=== PATIENT | female | born 1955 | race Caucasian/White ===

== ENCOUNTER 2020-04-28 09:38 | Outpatient (CLI) | payer BC, SELFPAY ==
--- NOTE | ~2020-04-28 | DEXA_ITS ---
BMD(1) Young-Adult(2) Age-Matched(3) Region (g/cm2) T-score Z-score WHO Classification L1 0.789 -2.9 -0.9 Osteoporosis L2 0.795 -3.4 -1.5 Osteoporosis L3 1.031 -1.5 0.5 Osteopenia L4 1.143 -0.6 1.4 Normal L1-L4 0.944 -2.0 -0.1 Osteopenia L2-L4 0.989 -1.8 0.1 Osteopenia Trend: L2-L4 Change vs Change vs Measured Age BMD(1) Baseline Previous Date (years) (g/cm2) (%) (%) 04/28/2020 [age] 0.989 baseline - 1 - Statistically 68% of repeat scans fall within 1SD (+- 0.010 g/cm2 for AP Spine L2-L4) 2 - [place] (Combined NHANES (ages 20-30) / ScanCafe (ages 20-40)) AP Spine Reference Population (v112) 3 - Matched for Age, Weight (females 25-100 kg), Ethnic 11 - World Health Organization - Definition of Osteoporosis and Osteopenia for Women: Normal = T-score at or above -1.0 SD; Osteopenia = T-score between -1.0 and -2.5 SD; Osteoporosis = T-score at or below -2.5 SD; (WHO definitions only apply when a young healthy Women reference database is used to determine T-scores.) Printed: 04/28/2020 10:25:53 AM (13.60)76:3.00:50.00:12.0 0.00:10.08 0.60x1.05 19.6:%Fat=25.8% 0.00:0.00 0.00:0.00 Filename: [email or web address].[email or web address] Scan Mode: Standard;[employer] 37.0 Etohum [id number] BMD(1) Young-Adult(2,7) Age-Matched(3) Region (g/cm2) T-score Z-score WHO Classification Neck Left 0.576 -3.3 -1.6 Osteoporosis Right 0.629 -2.9 -1.2 Osteoporosis Mean 0.602 -3.1 -1.4 Osteoporosis Difference 0.052 0.4 0.4 - Total Left 0.690 -2.5 -1.1 Osteoporosis Right 0.679 -2.6 -1.1 Osteoporosis Mean 0.685 -2.6 -1.1 Osteoporosis Difference 0.011 0.1 0.1 - Hip [place] Length Comparison (mm) (Right = 92.8 mm) (Mean = 100.5 mm) (Left = 97.9 mm) Trend: Total Mean Change vs Change vs Measured Age BMD(1) Baseline Previous Date (years) (g/cm2) (%) (%) 04/28/2020 65.2 0.685 baseline - 1 - Statistically 68% of repeat scans fall within 1SD (+- 0.010 g/cm2 for DualFemur Total) 2 - [place] (Combined NHANES (ages 20-30) / ScanCafe (ages 20-40)) Femur Reference Population (v112) 3 - Matched for Age, Weight (females 25-100 kg), Ethnic 7 - DualFemur Total T-score difference is 0.1. Asymmetry is None. 11 - World Health Organization - Definition of Osteoporosis and Osteopenia for Women: Normal = T-score at or above -1.0 SD; Osteopenia = T-score between -1.0 and -2.5 SD; Osteoporosis = T-score at or below -2.5 SD; (WHO definitions only apply when a young healthy Women reference database is used to determine T-scores.) Printed: 04/28/2020 10:25:53 AM (13.60); Filename: [email or web address].dfx; Right Femur; 15.3:%Fat=24.4%; Neck Angle (deg)= 53; Scan Mode: Standard 37.0 uGy; Left Femur; 14.9:%Fat=18.7%; Neck Angle (deg)= 59; Scan Mode: Standard 37.0 uGy [employer] [id number] Dear Ck Chang, Your patient Lorin Christianson completed a BMD test on 04/28/2020 using the [employer] DXA System (analysis version: 13.60) manufactured by [employer]. The following summarizes the results of our evaluation. PATIENT BIOGRAPHICAL: Name: Lorin Christianson Date: 1955 Height: 60.0 in. Gender: Female
== END 2020-04-28 09:39 | disposition home or self-care (01) ==
DX: M81.6 Localized osteoporosis [Lequesne] (principal)
CPT/HCPCS: 77080

== ENCOUNTER 2022-03-23 10:09 | Outpatient (CLI) | payer BC, SELFPAY ==
--- NOTE | ~2022-03-23 | XR_ITS ---
XR thoracic spine 3V DATE: 03/23/2022 11:28 INDICATION: Pain TECHNIQUE: AP, lateral, swimmer views COMPARISON: None FINDINGS: Degenerative disc disease at C5-6 and C6-7. Diffuse osteopenia. There is degenerative spurring of the thoracic spine. Mild scoliosis. No fracture or bone destruction is evident. The thoracic pedicles are intact. Surgical clips, right upper quadrant, consistent with cholecystectomy. IMPRESSION: Osteopenia Degenerative spurring Mild scoliosis Reviewed, dictated and finalized at location B.
== END 2022-03-23 10:10 | disposition home or self-care (01) ==
PROVIDERS: PCP Family Medicine
DX: M48.54XA Collapsed vertebra, not elsewhere classified, thoracic region, initial encounter for fracture (principal); M81.0 Age-related osteoporosis without current pathological fracture
CPT/HCPCS: 72072

== ENCOUNTER 2022-05-17 08:16 | Outpatient (CLI) | payer BC, SELFPAY ==
--- NOTE | ~2022-05-17 | DEXA_ITS ---
Bone Density Report Name: GRZEGORZ SEN Age: 67 Sex: Female Ethnicity: White Date of : 1955 Indication: postmenopausal; screening for osteoporosis; height loss; Referring Provider: UNKNOWN, UNKNOWN Study: Bone densitometry was performed. Exam Date: May 17, 2022 Accession number: [id number] Bone Density: Region BMD T-score Z-score Classification AP Spine(L1, L2, L3) 0.648 -3.4 -1.6 Osteoporosis Femoral Neck (Left) 0.481 -3.3 -1.8 Osteoporosis Total Hip (Left) 0.626 -2.6 -1.4 Osteoporosis Femoral Neck (Right) 0.448 -3.6 -2.1 Osteoporosis Total Hip (Right) 0.572 -3.0 -1.8 Osteoporosis Femoral Neck Mean 0.465 -3.5 -1.9 Osteoporosis Total Hip Mean 0.599 -2.8 -1.6 Osteoporosis World Health Organization criteria for BMD impression classify patients as: Normal (T-score at or above -1.0), Osteopenia (T-score between -1.0 and -2.5), or Osteoporosis (T-score at or below -2.5). 10-year Fracture Risk: FRAX not reported because: Some T-score for Spine Total or Hip Total or Femoral Neck at or below -2.5 Treated for osteoporosis Clinical Information Provided by Patient: Smokes Is being treated for osteoporosis Has used the following medications: Fosamax (i.e. alendronate), Vitamin D, Calcium Patient maximum height was 60 No regular weight bearing exercise Does not regularly consume dairy products Drinks caffeinated beverages Onset of menses at age 13 Number of children 2 Impression: The patient has osteoporosis, based on the Right Femoral Neck T-score. The patient has risk factors, including: smoking. Discussion: It is important to ask patients whether they are taking their medications and to encourage continued and appropriate compliance with their osteoporosis therapies to reduce fracture risk. It is also important to review their risk factors and encourage appropriate calcium and vitamin D intakes, exercise, fall prevention and other lifestyle measures. Follow-Up: Consider a repeat BMD and Vertebral Fracture Assessment (VFA) exam in 2 years or sooner if medically necessary, to reassess this patient's status. Reported by: Dr. Robert Mayers on 05/17/2022 8:58:00 AM. Reviewed, dictated and finalized at location ABritton ROJAS
== END 2022-05-17 08:17 | disposition home or self-care (01) ==
LOC: CHSIMG 08:20
PROVIDERS: PCP Family Medicine
DX: M81.0 Age-related osteoporosis without current pathological fracture (principal)
CPT/HCPCS: 77080

== ENCOUNTER 2024-08-21 13:09 | Outpatient (CLI) | payer MEDICARE, BC, SELFPAY ==
--- NOTE | ~2024-08-21 | DEXA_ITS ---
Bone Density Report Name: GRZEGORZ SEN Age: 69 Sex: Female Ethnicity: White Date of : 1955 Indication: postmenopausal osteoporosis; monitoring treatment; Referring Provider: LESTER, CARLY Moreno Study: Bone densitometry was performed. Exam Date: August 21, 2024 Accession number: [id number] Bone Density: Region BMD T-score Z-score Classification AP Spine(L1, L2, L3) 0.631 -3.5 -1.6 Osteoporosis Femoral Neck (Left) 0.422 -3.8 -2.2 Osteoporosis Total Hip (Left) 0.627 -2.6 -1.2 Osteoporosis Femoral Neck (Right) 0.429 -3.8 -2.1 Osteoporosis Total Hip (Right) 0.601 -2.8 -1.4 Osteoporosis Femoral Neck Mean 0.426 -3.8 -2.2 Osteoporosis Total Hip Mean 0.614 -2.7 -1.3 Osteoporosis World Health Organization criteria for BMD impression classify patients as: Normal (T-score at or above -1.0), Osteopenia (T-score between -1.0 and -2.5), or Osteoporosis (T-score at or below -2.5). 10-year Fracture Risk: FRAX not reported because: Some T-score for Spine Total or Hip Total or Femoral Neck at or below -2.5 Treated for osteoporosis Previous Exams: Region Exam Age BMD T-score BMD Change BMD Change Date g/cm2 vs Baseline vs Previous AP Spine (L1-L3) 08/21/2024 69 0.631 -3.5 -0.138 (-18.0% -0.018 (-2.7%) 05/17/2022 67 0.648 -3.4 -0.121 (-15.7% -0.109 (-14.4% 04/28/2020 65 0.757 -2.4 -0.012 (-1.5%) -0.012 (-1.5%) 04/28/2020 65 0.769 -2.3 Total Hip(Left) 08/21/2024 69 0.627 -2.6 -0.006 (-1.0%) 0.001 (0.2%)# 05/17/2022 67 0.626 -2.6 -0.008 (-1.2%) -0.011 (-1.7%) 04/28/2020 65 0.636 -2.5 0.003 (0.5%) 0.003 (0.5%) 04/28/2020 65 0.633 -2.5 Total Hip(Right) 08/21/2024 69 0.601 -2.8 N/A 5.2%# 05/17/2022 67 0.572 -3.0 N/A -8.2%# 04/28/2020 65 0.623 -2.6 N/A N/A 04/28/2020 65 0.000 0.0 N/A N/A *Denotes significance at 95% confidence level, LSC for AP Spine = 0.022 g/cm2, LSC for Total Hip = 0.027 g/cm2 # Denotes dissimilar scan types or analysis methods Clinical Information Provided by Patient: Smokes Is being treated for osteoporosis Has used the following medications: Fosamax (i.e. alendronate), Vitamin D, Calcium Patient maximum height was 60 Menopause Age: 52 No regular weight bearing exercise Drinks caffeinated beverages Onset of menses at age 15 Number of children 2 Impression: The patient has osteoporosis, based on the Left Femoral Neck T-score. The patient has risk factors, including: smoking. No significant bone loss was observed. Discussion: PATIENT UNDER TREATMENT WITH NO SIGNIFICANT BMD LOSS SINCE LAST EXAM. In an untreated patient, BMD typically declines with age. A lack of decline or gain is usually a sign that treatment is efficacious and fracture risk is reduced. It is important to ask patients whether they are taking their medications and to encourage continued and appropriate compliance with their osteoporosis therapies to reduce fracture risk. It is also important to review their risk factors and encourage appropriate calcium and vitamin D intakes, exercise, fall prevention and other lifestyle measures. Follow-Up: Consider a repeat BMD and Vertebral Fracture Assessment (VFA) exam in 2 years or sooner if medically necessary, to reassess this patient's status. Reported by: SYDNEY on 08/21/2024 1:49:00 PM. Reviewed, dictated and finalized at location A.
--- NOTE | ~2024-08-21 | CT_ITS ---
CT Scan of the Chest without Contrast: Clinical Indication: Lung cancer screening, nicotine dependence Technique: Contiguous sections were acquired throughout the chest without intravenous contrast. Dose reduction technique was used on this scan by utilizing automated exposure control and iterative recon struction technique. The dose-length product (DLP) was 61.73 mGy-cm. Findings: There is no evidence of any significant mediastinal, hilar or axillary lymphadenopathy. The mediastin al soft tissues appear normal. There is no evidence of pleural or pericardial effusion. There is a 2.6 x 2.2 cm lobulated pulmonary nodule in the peripheral left upper lobe (axial image 62) . Right lung clear. Images through the upper abdomen reveal low-density left adrenal nodule, compatible with adenoma. The re is degenerative spondylosis of the thoracic spine. Impression: Lung RADS 4B: Very suspicious. Tissue sampling of the 2.6 x 2.2 cm left upper lobe pulmonary nodule r ecommended to establish histologic diagnosis. Reviewed, dictated and finalized at location . COMMUNICATIONS ANALYST Impression: Lung RADS 4B: Very suspicious. Tissue sampling of the 2.6 x 2.2 cm left upper l obe pulmonary nodule recommended to establish histologic diagnosis.
--- NOTE | ~2024-08-21 | MM_ITS ---
EXAMINATION: MM screening [facility] BI w elissa HISTORY: Screening TECHNIQUE: Craniocaudal and mediolateral oblique 3-D tomosynthesis images were obtained and synthetic 2-D images were generated. CAD analysis was submitted and interpreted. COMPARISON: No prior studies for comparison. BREAST PARENCHYMAL COMPOSITION: Dense: The breasts are heterogeneously dense, which may obscure small masses FINDINGS: There are breast asymmetries in the upper outer quadrant of the right breast and also in th e upper outer quadrant of the left breast. No suspicious calcifications or architectural distortion. IMPRESSION: 1. Bilateral breast asymmetries. 2. Recommend comparison to previous outside mammograms. BI-RADS Category 0: Incomplete: Needs additional imaging evaluation. Reviewed, dictated and finalized at location A. EN FENCE ERECTOR
--- OUTSIDE RECORDS SUMMARY | 2024-08-21 13:49 | XMS_ITS | Clinical Summary ---
Author Organization [facility] Address [address] [place] [address] [place] [address] Care Team Providers Care Sock Lining Examiner Name Role Phone Ck Chang MD Primary Care Provider [phone] Allergies No known active allergies Medications amLODIPine 10 MG tablet Take 10 mg by mouth daily. Active metoprolol tartrate 50 MG tablet Take by mouth daily. Active triamterene-hyd roCHLOROthiazid e 37.5-25 MG capsule Take 1 capsule by mouth daily. Active aspirin 81 MG chewable tablet Chew 81 mg by mouth daily. Active cholecalciferol (VITAMIN D3) 125 MCG (5000 UT) Tab Take 5,000 Units by mouth daily. On Tue, Tue, Tuesday Active Linoleic Acid-[place] Oil 500-1000 MG Cap Take 2 capsules by mouth daily. Active Active Problems Problem Noted Date Diagnosed Date Localized osteoporosis witho ut current pathological fracture 05/06/2020 Family History Medical History Relation Comments Diabetes Father Breast Cancer Maternal Aunt late 60's Breast Cancer Maternal Grandmother late 60's Hypertension Mother Relation Status Comments Father Maternal Aunt Maternal Grandmother Mother Social History Tobacco Use Types Packs/Day Years Used Date Smoking Tobacco: Every Day Smokeless Tobacco: Never Tobacco Cessation:Ready to Q uit: No; Counseling Given: Yes Comments Unknown Sex and Gender Information Value Date Recorded Sex Assigned at Not on file Legal Sex Female 10:13 AM CDT Gender Identity Not on file Sexual Orientation Not on file Last Filed Vital Signs Vital Sign Reading Time Taken Comments Blood Pressure 118/54 05/07/2020 2:19 PM CDT Pulse 79 05/07/2020 2:19 PM CDT Temperature 36.5 ??C (97.7 ??F) 05/07/2020 2:19 PM CD T Respiratory Rate 16 05/07/2020 2:19 PM CDT Oxygen Saturation 100% 05/07/2020 2:19 PM CDT Inhaled Oxygen Concentration - - Weight 49.6 kg (109 lb 5.6 oz) 05/07/2020 2:19 P M CDT Height 152.4 cm (5') 05/07/2020 2:19 PM CDT Body Mass Index 21.36 05/07/2020 2:19 PM CDT Plan of Treatment Health Maintenance Due Date Last Done Comments Colorectal Cancer Screening Colonoscopy (10 Years) 1955 Pneumococcal Vaccine: 65+ Years (1 of 2 - PCV) 1963 Hepatitis C 1975 DTaP, Tdap and Td Vaccines ( 1 - Tdap) 01/19/1976 Zoster Vaccines (1 of 2) 2007 Dexa Scan (General) 2022 COVID-19 Vaccine (1 - 2023-2 5 season) 2024 Influenza Adult (#1) 2024 Mammogram Screening 07/07/2025 07/07/2023, 04/06/2021, 02/11/2021 RSV Immunization or 60+ Years (1 - 1-dose 75+ series) 01/19/2032 Meningococcal B Vaccine Aged Out No l onger eligible based on patient's age to complete this topic Meningococcal Vaccine Aged Out No mohsen sofy eligible based on patient's age to complete this topic RSV Immunizations Under 20 Months Aged Out No longer eligible b ased on patient's age to complete this topic Procedures Procedure Name Priority Date/Time Associated Diagnosis Comments MG SCREENING W ROXANN ELIZABETH DIGI Routine 07/07/2023 3:29 PM [employer]OR [employer] Screening mammogram, encounter for from Last 3 Months or Most Recently Relevant to Health Maintenance Results * MG SCREENING W ROXANN ELIZABETH DIGI (07/07/2023 3:29 PM EDITOR [employer]INE) Anatomical Region Laterality Modality Breast Bilateral Mammography 07/08/2023 7:47 AM [employer] Narrative 07/08/2023 7:51 AM [employer]OR [employer]INE Examination: Digital bilateral screening mammogram with 3D Tomosynthesis Exam Date/Time: 07/07/2023 3:29 PM Reason For Exam: ??screening ? Benign duct removal 1980. No other prior breast procedures. No personal or first-degree relative history of breast cancer. No current complaints. Comparison: Mammograms from 02/11/2021 05/06/2019 05/02/2018 Technique: Digital screening mammography of both breasts was performed in addition to 3-D Tomosynthesis technique. This study was read with the assistance of a computer-aided detection system. Tissue density: The breast tissue is heterogeneously dense, which may obscure small masses. Findings: Benign round coarse calcification in the right breast. Benign axillary lymph nodes. Overall parenchymal pattern unchanged from prior studies. There is no new focal asymmetry, dominant mass lesion, area of skin thickening, or cluster of suspicious appearing calcifications in either breast to suggest malignancy. ===== IMPRESSION: ===== 1. ??Stable mammographic appearance with no new findings to suggest malignancy in either breast. Assessment: ACR BI-RADS 2 - BENIGN FINDING(S) Recommendation: 1:Routine Screening Bilateral Comments: Ordered By: CARLY BATISTA Interpreted By: Seth Rios MD, 07/08/2023 7:47 AM Carly CASTRO MAMMO Final Resu lt from Last 3 Months or Most Recently Relevant to Health Maintenance Insurance [facility] Care Teams Sock Lining Examiner Relationship Specialty Start Date End Date Ck Chang MD [address] [place] [id number] PCP - General FAMILY PRACTICE 05/07/20
--- OUTSIDE RECORDS SUMMARY | 2024-08-21 13:49 | XMS_ITS | Encounter Summary ---
Author Organization [facility] Address [facility] [place] [address] [place] [address] Care Team Providers Care Hr Business Partner Name Role Phone Ck Chang MD Primary Care Provider [phone] Encounter Details Date Type Department Care Team (Late st Contact Info) Description 05/06/2020 Hospital Orders Only [facility] [address] [place] [address] Ck Chang MD [address] [place] [address] Social History Tobacco Use Types Packs/Day Years Used Date Smoking Tobacco: Never Assessed Comments Unknown Sex and Gender Information Value Date Recorded Sex Assigned at Not on file Legal Sex Female 10:13 AM CDT Gender Identity Not on file Sexual Orientation Not on file COVID-19 Exposure Response Date Recorded In the last month, have you been in contact with someone who was confirmed or suspected to have Coronavirus / COVID-19? No / Unsure 05/07/2020 2:01 PM CDT documented as of this encounter Plan of Treatment Not on file documented as of this encounter Visit Diagnoses Not on filedocumented in this encounter Care Teams Hr Business Partner Relationship Specialty Start Date End Date Ck Chang MD [address] [place] [address] PCP - General FAMILY PRACTICE 05/07/20 documented as of this encounter
== END 2024-08-21 13:10 | disposition home or self-care (01) ==
PROVIDERS: PCP Nurse Practitioner Family; Visit Provider Nurse Practitioner Family
DX: Z12.31 Encounter for screening mammogram for malignant neoplasm of breast (principal); Z78.0 Asymptomatic menopausal state; Z12.2 Encounter for screening for malignant neoplasm of respiratory organs; R92.8 Other abnormal and inconclusive findings on diagnostic imaging of breast; R91.8 Other nonspecific abnormal finding of lung field; M81.0 Age-related osteoporosis without current pathological fracture; Z87.891 Personal history of nicotine dependence
CPT/HCPCS: 71271; 77063; 77067; 77080